=== PATIENT | female | born 1950 | race Caucasian/White ===

== ENCOUNTER 2016-08-08 18:29 | Emergency (ER) | payer OTHER ==
[~2016-08-08 18:29] MED LIST: ACET500CAP PO; ASAB PO; B121000P IM; BACDS PO; DURA12 TOP; ENALAPRIL; FENTANYL; GLUCPH PO; LANTUS SC; LEVOTHROID50 MCG PO; LEVOTHYROXIN50 MCG PO; NOVOLOG SC; ROXICODONE; ROXICODONE30 MG PO; VASOTEC5 PO; X25 PO; XANAX1 MG PO; ZANTAC300 MG PO; ZOFRAN4 PO; ZOL100 PO
[2016-08-08 19:33] LABS: BASOPHILS 0.2 %; BASOPHILS ABSOLUTE 0.02 10/3/uL (0.0-0.16); EOSINOPHILS 0.4 %; EOSINOPHILS ABSOLUTE 0.04 10/3/uL (0.0-0.53); IMMATURE GRANULOCYTES 0.3 %; IMMATURE GRANULOCYTES ABSOLUTE 0.03 10/3/uL (0.0-0.11); LYMPHOCYTES 14.2 %; LYMPHOCYTES ABSOLUTE 1.55 10/3/uL (0.67-4.30); MEAN CORPUS HGB CONC 31.6 g/dL (32.0-36.0); MEAN CORPUSCULAR HEMOGLOB 25.4 pg (26.0-34.0); MEAN CORPUSCULAR VOLUME 80.2 fL (80-100); MEAN PLATELET VOLUME 9.7 fL (9.2-13.0); MONOCYTES 4.3 %; MONOCYTES ABSOLUTE 0.47 10/3/uL (0.21-1.20); NEUTROPHILS 80.6 %; RBC DISTRIBUTION WIDTH 14.5 % (12.0-16.0)
[2016-08-08 19:34] LABS: ER CBC TAT 0 Hrs 10 Mins; HEMATOCRIT 37.6 % (36.0-48.0); HEMOGLOBIN 11.9 g/dL (12.0-16.0); MANUAL DIFF NO %; PLATELET COUNT 338 10/3/uL (150-400); RED CELL COUNT 4.69 10/6/uL (4.0-5.6); WHITE BLOOD CELLS 10.9 10/3/uL (4.5-10.5)
[2016-08-08 19:50] LABS: A/G RATIO 0.8 (0.7-1.9); ALBUMIN 3.4 G/DL (3.5-5.0); ALKALINE PHOSPHATASE 127 U/L (45-117); BUN (BLOOD UREA NITROGEN) 8 MG/DL (6-23); CHLORIDE, SERUM 101 MMOL/L (96-112); CO2 (CARBON DIOXIDE) 31 MMOL/L (24-34); CREATININE 1.26 MG/DL (0.55-1.02); GFR AFRICAN AMERICAN 52 ML/MIN (>=60); GFR NON AFRICAN AMERICAN 45 ML/MIN (>=60); GLOBULIN 4.5 G/DL (2.5-4.1); GLUCOSE, SERUM 163 MG/DL (60-99); SGOT(AST) 11 U/L (5-40); SGPT(ALT) 11 U/L (5-65); SODIUM, SERUM 137 MMOL/L (135-148); TOTAL BILIRUBIN 0.9 MG/DL (0-1.2); TOTAL PROTEIN 7.9 G/DL (6.0-8.5)
[2016-08-08] MEDS ORDERED: VASOTEC5 PO (20:00)
[2016-08-08] MEDS ORDERED: ZOFRAN4 PO (20:00)
[2016-08-08] MEDS ORDERED: XANAX1 MG PO (20:00)
[2016-08-08] MEDS ORDERED: ASAB PO (20:01)
[2016-08-08] MEDS ORDERED: SYN.05 PO (20:01)
[2016-08-08] MEDS ORDERED: NOVOLOG SC (20:01)
[2016-08-08] MEDS ORDERED: LANTUS SC (20:01)
[2016-08-08] MEDS ORDERED: ROXICODONE30 MG PO (20:01)
[2016-08-08] MEDS ORDERED: B121000P IM (20:02)
[2016-08-08 22:17] LABS: ASCORBIC ACID (UR NOT ORDER) NEG (NEG); BILIRUBIN, URINE NEGATIVE (NEG); ER URINALYSIS TAT 0 Hrs 14 Mins; KETONE, URINE 20 MG/DL (NEG); LEUKOCYTE ESTERASE(NOT OR SMALL (NEG); NITRITE (URINE) NEG (NEG); WBC (NOT ORDERED) (RFLEX) 9 (0-5)
== END 2016-08-09 00:45 | disposition home or self-care (01) ==
LOC: ER 18:29
PROVIDERS: Emergency Medicine
DX: N39.0 Urinary tract infection, site not specified (principal); I10 Essential (primary) hypertension; K21.9 Gastro-esophageal reflux disease without esophagitis; F41.9 Anxiety disorder, unspecified; E11.9 Type 2 diabetes mellitus without complications; Z85.038 Personal history of other malignant neoplasm of large intestine; Z88.0 Allergy status to penicillin; Z88.1 Allergy status to other antibiotic agents; Z91.041 Radiographic dye allergy status; Z79.82 Long term (current) use of aspirin; Z79.899 Other long term (current) drug therapy
CPT/HCPCS: 74176; 80053; 81001; 83605; 83690; 85025; 87086; 96365; 96372; 96375; 99284; J1956; J2543; J2550